=== PATIENT | male | born 2000 | race Caucasian/White ===

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

== ENCOUNTER 2023-12-10 17:45 | Emergency (ER) | payer OTHER ==
[2023-12-10] MEDS ORDERED: NA CHLORIDE 0.9% 1,000 ML ONE (19:16)
--- NOTE | 2023-12-10 19:18 | RAD REPORT ---
EXAM DESCRIPTION: RAD - Knee Left 3 View - 12/10/2023 6:49 pm CLINICAL HISTORY: Left knee pain FINDINGS: No fracture or dislocation is seen. No bone or joint abnormality noted. If patient continues to have knee pain a followup x-ray in 4 weeks would recommended
[2023-12-10 19:19] LABS: Absolute Eosinophils 0.5 K/uL (0-0.5); Absolute Monocytes 0.9 K/uL (0.1-1.3); Absolute Neutrophil 6.9 K/uL (1.8-8.0); Basophils % 0.2 % (0-1.3); Eosinophils % 4.1 % (0-4.4); Hematocrit 38.7 % (39.6-49.0); Hemoglobin 13.1 g/dL (13.6-17.9); Lymphocytes % 26.3 % (15.3-44.8); MCH 30.8 pg (27.0-35.0); MCHC 33.7 g/dL (32.0-36.0); MCV 91.4 fL (80-100); MPV 8.2 fL (7.6-11.3); Monocytes % 8.2 % (3.3-12.3); Neutrophils % 61.2 % (41.7-73.7); Platelets 274 thou/uL (152-406); RBC Red Blood Cell Count 4.23 M/uL (4.33-5.43); Red Cell Distribution Width 12.4 % (12.1-15.2)
[2023-12-10 19:38] LABS: Bilirubin Total 0.4 mg/dL (0.2-1.0); Globulin 3.9 g/dL (2.3-3.5); Protein, Total 7.9 g/dL (6.4-8.2)
--- NOTE | 2023-12-10 20:43 | RAD REPORT ---
EXAM DESCRIPTION: CT - Abdomen Pelvis W Contrast - 12/10/2023 8:31 pm CLINICAL HISTORY: Abdominal pain COMPARISON: 2019 TECHNIQUE: Computed axial tomography of the abdomen pelvis was obtained. 100 cc Isovue-300 was admin istered intravenously. Oral contrast was not requested which limits evaluation of bowel and appendix All CT scans are performed using dose optimization technique as appropriate and may include automated exposure control or mA/KV adjustment according to patient size. FINDINGS: The liver, spleen, pancreas, adrenal and kidneys appear unremarkable. There is no evidence of diverticulitis. Appendectomy IMPRESSION: No acute abnormality is displayed.
--- NOTE | 2023-12-10 20:46 | ER ---
Nurse's Notes [facility] Name: Rigoberto Dodge Jr Age: 23 yrs Sex: Male : 2000 Arrival Date: 12/10/2023 Time: 17:45 Bed DX4 Private MD: Diagnosis: Nausea with vomiting, unspecified;Abdominal pain, Generalized Presentation: 12/09 18:32 Chief complaint: Patient states: N/V, mid abdominal pain that started yesterday, sent ph home from work and needs work note to return, denies nausea at this time. Coronavirus screen: Vaccine status: Patient reports being unvaccinated. Ebola Screen: No symptoms or risks identified at this time. Initial Sepsis Screen: Does the patient meet any 2 criteria? No. Patient's initial sepsis screen is negative. Does the patient have a suspected source of infection? No. Patient's initial sepsis screen is negative. Risk Assessment: Do you want to hurt yourself or someone else? Patient reports no desire to harm self or others. Onset of symptoms was December 10, 2023. 18:32 Method Of Arrival: Ambulatory ph 18:32 Acuity: ANNIA 3 ph Historical: - Allergies: 18:33 No Known Allergies; ph - PMHx: 18:33 ALLEGIES; Asthma; ph - Immunization history:: Adult Immunizations unknown. - Infectious Disease History:: Denies. - Social history:: Smoking status: Patient denies any tobacco usage or history of. Screenin:05 [facility] ED Fall Risk Assessment (Adult) History of falling in the last 3 months, lg3 including since admission No falls in past 3 months (0 pts) Confusion or Disorientation No (0 pts) Intoxicated or Sedated No (0 pts) Impaired Gait No (0 pts) Mobility Assist Device Used No (0 pt) Altered Elimination No (0 pt) Score/Fall Risk Level 0 - 2 = Low Risk Oriented to surroundings, Maintained a safe environment, Educated pt \T\ family on fall prevention, incl call for assistance when getting out of bed, Assessed \T\ reinforced patient's understanding of fall precautions. Abuse screen: Denies threats or abuse. Denies injuries from another. Nutritional screening: No deficits noted. Tuberculosis screening: No symptoms or risk factors identified. Assessment: 21:05 General: Appears in no apparent distress. comfortable, Behavior is calm, cooperative. lg3 Pain: Complains of pain in abdomen. Neuro: No deficits noted. Taylor Agitation-Sedation Scale (RASS): 0 - Alert and Calm Level of Consciousness is awake, alert, obeys commands, Oriented to person, place, time, situation. Cardiovascular: No deficits noted. Denies chest pain, shortness of breath, Capillary refill < 3 seconds Clubbing of nail beds is absent JVD is absent Patient's skin is warm and dry. Respiratory: No deficits noted. Airway is patent Respiratory effort is even, unlabored, Respiratory pattern is regular, symmetrical. GI: No signs and/or symptoms were reported involving the gastrointestinal system. Abdomen is round non-distended, Bowel sounds present X 4 quads. Reports lower abdominal pain, upper abdominal pain, nausea. : No deficits noted. No signs and/or symptoms were reported regarding the genitourinary system. EENT: No deficits noted. No signs and/or symptoms were reported regarding the EENT system. Derm: No deficits noted. No signs and/or symptoms reported regarding the dermatologic system. Skin is intact, is healthy with good turgor, Skin is dry, Skin is normal, Skin temperature is warm. Musculoskeletal: No deficits noted. No signs and/or symptoms reported regarding the musculoskeletal system. Circulation, motion, and sensation intact. Range of motion: intact in all extremities. Vital Signs: 18:32 BP 133 / 87; Pulse 82; Resp 18; Temp 98.8; Pulse Ox 98% on R/A; Weight 70.31 kg; Height ph 5 ft. 9 in. ; 21:05 BP 127 / 88; Pulse 76; Resp 17 S; Temp 98.1(O); Pulse Ox 99% on R/A; lg3 18:32 Body Mass Index 22.89 (70.31 kg, 175.26 cm) ph ED Course: 17:46 Patient arrived in ED. rg4 17:47 Abbie Cerna PA-C is PHCP. sb4 17:47 Narciso Arora MD is Attending Physician. sb4 18:33 Triage completed. ph 18:33 Arm band placed on Patient placed in waiting room, Patient notified of wait time. ph 18:51 Knee Left 3 View XRAY In Process Unspecified. EDMS 19:15 Inserted saline lock: 20 gauge in left antecubital area, using aseptic technique. Blood rc3 collected. 19:16 CBC with Diff Sent. rc3 19:16 CMP Sent. rc3 19:16 Lipase Sent. rc3 20:33 CT Abd/Pelvis - IV Contrast Only In Process Unspecified. EDMS 21:05 Patient has correct armband on for positive identification. lg3 21:05 No provider procedures requiring assistance completed. IV discontinued, intact, lg3 bleeding controlled, No redness/swelling at site. Pressure dressing applied. Administered Medications: 19:20 Drug: NS 0.9% IV 1000 ml IV at 1 bolus Per protocol; 1000 mL bolus Route: IV; Rate: 1 kb3 bolus; Site: left antecubital; 21:07 Follow up: Response: No adverse reaction; IV Status: Completed infusion; IV Intake: lg3 1000ml Medication: 21:05 VIS not applicable for this client. lg3 Intake: 21:07 IV: 1000ml; Total: 1000ml. lg3 Outcome: 20:46 Discharge ordered by MD. sb4 21:05 Discharged to home ambulatory, lg3 21:05 Condition: stable 21:05 Discharge instructions given to patient, Instructed on discharge instructions, follow up and referral plans. medication usage, Demonstrated understanding of instructions, follow-up care, medications, Prescriptions given X 1, 21:07 Patient left the ED. lg3 Signatures: Dispatcher [employer] EDMS Jayne Pedersen, RN RN Ammy Loyd rg4 Елена Baldwin RN RN lg3 Shena Casillas RN RN kb3 Abbie Cerna, PA-C PA-C sb4 Ivelisse Orozco rc3
--- NOTE | 2023-12-10 20:46 | EDPHYS ---
Physician Documentation [facility] Name: Rigoberto Dodge Jr Age: 23 yrs Sex: Male : 2000 Arrival Date: 12/10/2023 Time: 17:45 Bed DX4 Private MD: ED Physician Narciso Arora HPI: 12/09 19:17 This 23 yrs old Male presents to ER via Ambulatory with complaints of abdominal pain, sb4 nausea, vomiting. 19:17 Patient states that has been he has been feeling nauseated over the past few days. He sb4 states that he vomited 3 times today, once at work. He states that his nausea has improved since. Work sent him home and is requiring a note for him to return. Additionally, he complains of left knee pain. He denies any diarrhea. He denies any prior GI issues. No reported fever. Historical: - Allergies: 18:33 No Known Allergies; ph - PMHx: 18:33 ALLEGIES; Asthma; ph - Immunization history:: Adult Immunizations unknown. - Infectious Disease History:: Denies. - Social history:: Smoking status: Patient denies any tobacco usage or history of. ROS: 19:17 Constitutional: Negative for fever, chills, and weight loss, sb4 19:17 Abdomen/GI: Positive for abdominal pain, nausea and vomiting, 19:17 MS/extremity: Positive for left knee pain, Exam: 19:18 Constitutional: This is a well developed, well nourished patient who is awake, alert, sb4 and in no acute distress. Head/Face: Normocephalic, atraumatic. Eyes: Extra-ocular motions intact. Periorbital areas with no swelling, redness, or edema. ENT: Mucous membranes moist. Cardiovascular: Regular rate and rhythm with a normal S1 and S2. Respiratory: Lungs have equal breath sounds bilaterally, clear to auscultation and percussion. No rales, rhonchi or wheezes noted. No increased work of breathing, no retractions or nasal flaring. Abdomen/GI: Soft, non-tender, no distension. Skin: Warm, dry with normal turgor. Normal color with no rashes, no lesions, and no evidence of cellulitis. MS/ Extremity: Pulses equal, no cyanosis. Neurovascular intact. Full, normal range of motion. Vital Signs: 18:32 BP 133 / 87; Pulse 82; Resp 18; Temp 98.8; Pulse Ox 98% on R/A; Weight 70.31 kg; Height ph 5 ft. 9 in. ; 21:05 BP 127 / 88; Pulse 76; Resp 17 S; Temp 98.1(O); Pulse Ox 99% on R/A; lg3 18:32 Body Mass Index 22.89 (70.31 kg, 175.26 cm) ph MDM: 17:57 Patient medically screened. sb4 20:46 Data reviewed: vital signs, nurses notes, lab test result(s), radiologic studies, and sb4 as a result, I will discharge patient. Counseling: I had a detailed discussion with the patient and/or guardian regarding the historical points, exam findings, and any diagnostic results supporting the discharge/admit diagnosis, lab results, radiology results, to return to the emergency department if symptoms worsen or persist or if there are any questions or concerns that arise at home. 12/09 18:35 Order name: CBC with Diff; Complete Time: 19:25 sb4 12/09 18:35 Order name: CMP; Complete Time: 19:38 sb4 12/09 18:35 Order name: Lipase; Complete Time: 19:38 sb4 12/09 18:35 Order name: Knee Left 3 View XRAY; Complete Time: 19:20 sb4 12/09 19:17 Order name: CT Abd/Pelvis - IV Contrast Only; Complete Time: 20:45 sb4 12/09 18:35 Order name: IV Saline Lock; Complete Time: 19:16 sb4 12/09 18:35 Order name: Labs collected and sent; Complete Time: 19:16 sb4 Administered Medications: 19:20 Drug: NS 0.9% IV 1000 ml IV at 1 bolus Per protocol; 1000 mL bolus Route: IV; Rate: 1 kb3 bolus; Site: left antecubital; 21:07 Follow up: Response: No adverse reaction; IV Status: Completed infusion; IV Intake: lg3 1000ml Disposition Summary: 12/10/23 20:46 Discharge Ordered Notes: Location: Home sb4 Problem: new sb4 Symptoms: have improved sb4 Condition: Stable sb4 Diagnosis - Nausea with vomiting, unspecified sb4 - Abdominal pain, Generalized sb4 Followup: sb4 - With: Emergency Department - When: As needed - Reason: Trouble breathing, Worsening of condition Discharge Instructions: - Discharge Summary Sheet sb4 - Nausea and Vomiting, Adult sb4 - Abdominal Pain, Adult, Kxtb-on-Dnol sb4 Forms: - Work release form sb4 - Patient Portal Instructions sb4 - Leadership Thank You Letter sb4 Prescriptions: - Zofran 4 mg Oral Tablet - take 1 tablet ORAL route every 12 hours As needed; 20 tablet; Refills: 0, sb4 Product Selection Permitted Signatures: Dispatcher [employer] EDaJyne Guy, RN RN Shena Nicole, RN RN kb3 Abbie Cerna PA-C PASaundra sb4 Елена Baldwin RN lg3 Corrections: (The following items were deleted from the chart) 19:18 19:18 Abdomen Pelvis W Con+CT.RAD.BRZ ordered. EDMS EDMS 20:35 20:27 Abdomen Pelvis W Con+CT.RAD.BRZ ordered. EDMS EDMS
[2023-12-11 03:45] VITALS: BP 127/88; TEMP 98.1; O2SAT 99
== END 2023-12-10 21:07 | disposition home or self-care (01) ==
LOC: ER 17:45
DX: R11.2 Nausea with vomiting, unspecified (principal); R10.84 Generalized abdominal pain; M25.562 Pain in left knee
CPT/HCPCS: 85025; 36415; 83690; 80053; 74177; 73562; Q9967; J7030